=== PATIENT | female | born 1965 | race Caucasian/White ===

== ENCOUNTER 2017-08-07 16:38 | Emergency (ER) | payer OTHER ==
[2017-08-07 17:36] LABS: URINE PH (Dip) POC 5.5 (5.0-8.5)
[2017-08-07 17:36] LABS: URINE BLOOD (Dip) POC Negative (NEGATIVE); URINE GLUCOSE (Dip) POC Negative (NEGATIVE); URINE KETONES (Dip) POC Trace (NEGATIVE); URINE LEUKOCYTE EST (Dip) POC Trace (NEGATIVE); URINE NITRITE (Dip) POC Negative (NEGATIVE); URINE TOTAL PROTEIN POC Negative (NEGATIVE)
[2017-08-07 18:07] LABS: URINE BLOOD (Dip) POC Negative (NEGATIVE); URINE GLUCOSE (Dip) POC Negative (NEGATIVE); URINE KETONES (Dip) POC Trace (NEGATIVE); URINE LEUKOCYTE EST (Dip) POC Trace (NEGATIVE); URINE NITRITE (Dip) POC Negative (NEGATIVE); URINE TOTAL PROTEIN POC Negative (NEGATIVE)
[2017-08-07 18:07] LABS: URINE PH (Dip) POC 5.5 (5.0-8.5)
[2017-08-07] MEDS: KETOROLAC 60 MG INJ IM (19:05)
== END 2017-08-07 19:25 | disposition home or self-care (01) ==
LOC: FTE 16:38
DX: R30.0 Dysuria (principal)
CPT/HCPCS: 81003; 96372; 99284-25